=== PATIENT | male | born 1960 | race Caucasian/White ===

== ENCOUNTER 2018-02-06 11:16 | Outpatient (CLI) ==
[2018-02-06 12:25] VITALS: BMI 37.2
== END 2018-02-06 11:17 | disposition left against medical advice (07) ==
LOC: AMBL 11:16
PROVIDERS: ATTEND Emergency Medicine
DX: R06.82 Tachypnea, not elsewhere classified (principal)

== ENCOUNTER 2018-02-06 12:14 | Emergency (ER) ==
[2018-02-06 12:25] VITALS: BP 162/85; TEMP 97.9; BMI 37.2
--- NOTE | 2018-02-06 12:30 | ED.PDOC ---
General ED Provider: Dr. NASEEM MARQUEZ Chief Complaint: Shortness of Air Stated Complaint: Shortness of breath: was diving at [facility] which was uneventful until his final ascent after which he developed shortness of breath. States he became anxious and swam to the area to exit the devine. Emergency treatment offered by [facility] but was refused. He attributed it to acute anxiety . After leaving the devine he noticed continued SOB /dyspnea and decided to come to ER. States during ascent that he was breathing appropriately. Confirmed by his son who is present/ Time Seen by Physician: 12:20 Mode of Arrival: Walk-In Information Source: Patient Exam Limitations: No limitations Nursing and Triage Documentation Reviewed and Agree: Yes Reviewed sepsis parameters & appropriate labs ordered?: Yes System Inflammatory Response Syndrome: Not Applicable Sepsis Protocol: For patient's 13 years and over: Temp is 96.8 and below OR 101 and greater Pulse >90 BPM Resp >20/minute Acutely Altered Mental Status Are patient's symptoms suggestive of a new infection, such as: -Pneumonia -Skin, Soft Tissue -Endocarditis -UTI -Bone, Joint Infection -Implantable Device -Acute Abdominal Infection -Wound Infection -Meningitis -Blood Stream Catheter Infection -Unknown System Inflammatory Response Syndrome: Not Applicable Respiratory Complaint Exam - Shortness of Air Complaint/Exam Onset/Duration: 2-3 hours Symptoms Are: Still present Timing: Constant Initial Severity: Severe Current Severity: Moderate Character: Reports: Dyspnea at rest, Dyspnea on exertion Aggravating: Reports: Movement Alleviating: Reports: Oxygen (IMPROVED AFTER PLACED ON O2 AT 2 L NC) Associated Signs and Symptoms: Reports: Wheezing. Denies: Cough, Chest pain with cough, Chest pain, Fever, Chills, Diaphoresis, Nasal congestion, Dizziness , Calf pain, Edema, Rapid breathing Related History: Denies: Similar episode Pulmonary Embolism Risk Factors: Reports: None (RECREATIONAL DIVING) Pseudomonas Risk Factors: Reports: None Tuberculosis Risk Factors: Reports: None Home Oxygen Use: No Recent Stress Test: Yes (6 MO AGO AND WAS NORMAL) Recent Echo/LV Function: No Respiratory Distress: Mild Stridor Present: No Tracheal Deviation: No Subcutaneous Emphysema: No Accessory Muscle Use: No Retractions: Not Present Diminished Breath Sounds: Yes (POSTERIOR CHEST FIELD) Unable to Speak Full Sentences: No Fatigue: Yes Leg Swelling: No Igor's Sign Present: No Grunting Respirations: No Kussmaul Respirations: No Differential Diagnoses: Pulmonary Edema, Pulmonary Embolism (BAROTRAUMA) Related Surgical History: Reports: None Review of Systems - Review Of Systems Constitutional: Reports: No symptoms. Denies: Diaphoresis, Sweats Eyes: Reports: No symptoms Ears, Nose, Mouth, Throat: Reports: No symptoms Respiratory: Reports: Short of air, Wheezing Cardiac: Reports: No symptoms GI: Reports: No symptoms : Reports: No symptoms Musculoskeletal: Reports: No symptoms Skin: Reports: No symptoms Neurological: Reports: No symptoms Endocrine: Reports: No symptoms Hematologic/Lymphatic: Reports: No symptoms All Other Systems: Reviewed and Negative Past Medical History - Past Medical History Endocrine: Reports: Dyslipidemia Cardiovascular: Reports: Hypertension Respiratory: Reports: None Hematological: Reports: None Gastrointestinal: Reports: None Genitourinary: Reports: None Neuro/Psych: Reports: None Musculoskeletal: Reports: None Cancer: Reports: None - Surgical History General Surgical History: Reports: None - Family History Family History: Reports: None - Social History Smoking Status: Never smoker Hx Substance Use: No Alcohol Screening: Occasionally - Immunizations Tetanus Shot up to Date: No Physical Exam - Physical Exam Appearance: Ill-appearing, No pain distress, Well-nourished, Obese Ill-appearing: Mild Pain Distress: Mild Eyes: KURT, EOMI, Conjunctiva clear ENT: Ears normal, Nose normal, Oropharynx normal Respiratory: Airway patent, Breath sounds clear, Breath sounds diminished, Respirations nonlabored, Crackles (RT POSTERIOR CHEST) Cardiovascular: RRR, Pulses normal, Murmur (GRADE 2/6) GI/: Soft, Nontender, No masses, Bowel sounds normal, No Organomegaly Musculoskeletal: Normal strength, ROM intact, No edema, No calf tenderness Skin: Warm, Dry, Normal color Neurological: Sensation intact, Motor intact, Reflexes intact, Cranial nerves intact, Alert, Oriented Psychiatric: Affect appropriate, Mood appropriate Critical Care Note - Critical Care Note Total Time (mins): 120 Course - Course Hematology/Chemistry: 02/06/18 13:09 02/06/18 13:09 Orders, Labs, Meds: Lab Review 02/06/18 02/06/18 02/06/18 12:20 13:09 13:09 WBC 12.58 H RBC 4.85 Hgb 15.0 Hct 42.6 MCV 87.8 MCH 30.9 MCHC 35.2 RDW Coeff of Soheila 12.7 Plt Count 239 Immature Gran % (Auto) 0.4 Neut % (Auto) 83.6 Lymph % (Auto) 9.8 L Lyman % (Auto) 5.8 Eos % (Auto) 0.2 Baso % (Auto) 0.2 Immature Gran # (Auto) 0.1 Neut # (Auto) 10.5 H Lymph # (Auto) 1.2 Lyman # (Auto) 0.7 Eos # (Auto) 0.0 Baso # (Auto) 0.0 D-Dimer (Manual) Puncture Site R rad O2 Saturation 92.0 L ABG pH 7.438 ABG pCO2 28.2 L ABG pO2 60.0 L ABG HCO3 19.1 L ABG Total CO2 20 L ABG Base Excess -5 L Max Test + FiO2 % 21.0 Sodium 139 Potassium 4.5 Chloride 107 Carbon Dioxide 22 Anion Gap 14.5 BUN 17 Creatinine 0.89 Estimated GFR (MDRD) 87.00 BUN/Creatinine Ratio 19.10 Glucose 93 Lactic Acid Calcium 9.2 Total Bilirubin 0.5 AST 46 H ALT 51 Alkaline Phosphatase 64 Lactate Dehydrogenase LD Total Fraction LD 1 Fraction LD 2 Fraction LD 3 Fraction LD 4 Fraction LD 5 Total Creatine Kinase 553 CK-MB (CK-2) 9.0 H* CK-MB (CK-2) % 1.87698 Troponin I 0.2390 Total Protein 6.9 Albumin 3.7 Globulin 3.2 Albumin/Globulin Ratio 1.16 02/06/18 02/06/18 02/06/18 13:09 14:55 14:55 WBC RBC Hgb Hct MCV MCH MCHC RDW Coeff of Soheila Plt Count Immature Gran % (Auto) Neut % (Auto) Lymph % (Auto) Lyman % (Auto) Eos % (Auto) Baso % (Auto) Immature Gran # (Auto) Neut # (Auto) Lymph # (Auto) Lyman # (Auto) Eos # (Auto) Baso # (Auto) D-Dimer (Manual) 920.24 Puncture Site O2 Saturation ABG pH ABG pCO2 ABG pO2 ABG HCO3 ABG Total CO2 ABG Base Excess Max Test FiO2 % Sodium Potassium Chloride Carbon Dioxide Anion Gap BUN Creatinine Estimated GFR (MDRD) BUN/Creatinine Ratio Glucose Lactic Acid 14.5 Calcium Total Bilirubin AST ALT Alkaline Phosphatase Lactate Dehydrogenase LD Total Fraction LD 1 Fraction LD 2 Fraction LD 3 Fraction LD 4 Fraction LD 5 Total Creatine Kinase CK-MB (CK-2) CK-MB (CK-2) % Troponin I 0.2990 Total Protein Albumin Globulin Albumin/Globulin Ratio 02/06/18 02/06/18 02/06/18 14:55 14:55 14:55 WBC RBC Hgb Hct MCV MCH MCHC RDW Coeff of Soheila Plt Count Immature Gran % (Auto) Neut % (Auto) Lymph % (Auto) Lyman % (Auto) Eos % (Auto) Baso % (Auto) Immature Gran # (Auto) Neut # (Auto) Lymph # (Auto) Lyman # (Auto) Eos # (Auto) Baso # (Auto) D-Dimer (Manual) Puncture Site O2 Saturation ABG pH ABG pCO2 ABG pO2 ABG HCO3 ABG Total CO2 ABG Base Excess Max Test FiO2 % Sodium Potassium Chloride Carbon Dioxide Anion Gap BUN Creatinine Estimated GFR (MDRD) BUN/Creatinine Ratio Glucose Lactic Acid Calcium Total Bilirubin AST ALT Alkaline Phosphatase Lactate Dehydrogenase 223 LD Total 213 Fraction LD 1 18 Fraction LD 2 32 Fraction LD 3 23 Fraction LD 4 13 Fraction LD 5 14 Total Creatine Kinase 485 CK-MB (CK-2) 8.7 H* CK-MB (CK-2) % 1.66043 Troponin I Total Protein Albumin Globulin Albumin/Globulin Ratio Orders Category Date Time Status ABG DRAW REQUEST Stat CARDIO 02/06/18 12:55 Completed EKG-(ED ONLY) Stat CARDIO 02/06/18 12:54 Completed EKG-(ED ONLY) Stat CARDIO 02/06/18 14:43 Completed ABG Stat LAB 02/06/18 12:20 Completed CBC W/ AUTO DIFF Stat LAB 02/06/18 13:09 Completed CMP [COMPREHENSIVE METABOLIC PANEL] Stat LAB 02/06/18 13:09 Completed CPK [CREATINE KINASE] Stat LAB 02/06/18 13:09 Completed CPK [CREATINE KINASE] Stat LAB 02/06/18 14:55 Completed D-DIMER Stat LAB 02/06/18 13:09 Completed LACTIC ACID Stat LAB 02/06/18 14:55 Completed LDH ISOENZYMES Stat LAB 02/06/18 14:55 Completed Lactic Acid Dehydrogenase Stat LAB 02/06/18 14:55 Completed TROPONIN I Stat LAB 02/06/18 13:09 Completed TROPONIN I Stat LAB 02/06/18 14:55 Completed Enoxaparin Sodium [Lovenox] MEDS 02/06/18 15:45 Discontinued 100 mg .ROUTE .STK-MED ONE Enoxaparin Sodium [Lovenox] MEDS 02/06/18 15:43 Discontinued 100 mg SUBCUT ONCE STA CHEST, 1V AP ONLY Stat RADS 02/06/18 12:54 Completed Medications Discontinued Medications Generic Name Dose Route Start Last Admin Trade Name Yamel PRN Reason Stop Dose Admin Enoxaparin Sodium 100 mg 02/06/18 15:43 02/06/18 15:58 Lovenox SUBCUT 02/06/18 15:44 100 mg ONCE STA Administration Vital Signs: Temp Pulse Resp BP Pulse Ox 02/06/18 12:16 97.9 F 69 16 162/85 H 86 L Departure - Departure Time of Disposition: 15:50 Disposition: TSF SHORT-TRM HOSP Discharge Problem: Dyspnea and respiratory abnormalities, Dyspnea on exertion, Activities involving scuba diving, Cardiomegaly, Pulmonary edema, Right pulmonary infiltrate on CXR Discharge Problem: (Ruled Out): Congenital cardiomegaly Condition: Stable Pt referred to PMD for follow-up: No IPMP verified?: No Allergies/Adverse Reactions: Allergies rofecoxib [From Vioxx] Adverse Reaction (Verified 02/06/18 12:32) Transfer Form Completed: Yes Disposition Discussed With: Patient, Family (CONDITON STABLE AT TIME DISCHARGE) Additional Information: Monitoring EMS radio traffic earlier in afternoon, was award of a diver at [facility] that had ascended and developed acute shortness of breath. EMS responded and actualy reqested standby for air evac, Upon arrival patient attributed his sudden dyspnea to a panic attack and refused treatment or transport PATIENTS SON ADVISED ON WAY BACK TO TOWN IN CAR HIS FATHER BECAME MORE DYSPNEIC THEREFORE CAME TO ER. GENTLEMAN ADVISED HE HAD NOT EXPERIECED PREVIOUS SOB DURING THE DIVE AND STATED HE DID NOT SURFACE IN APPROPRIATELY. IT WAS ONLY AFTER HE SURFACED THAT HE DEVELOPED SOB AND HAD TROUBLE SWIMMING TO EXITING SITE. ONCE THERE SEEMED TO RECOVER. IN REVEIWING HIS HX STATE DURING TRAINING WITH VIGOROUS SWIMMING HE WOULD DEVELOP SOB BUT THEN WOULD RECOVER WITHOUT INCIDENT. DENIED KNOWLEDGE OF CARDIOPULMONARY DISEASE Due to concern over diving related cardiopulmonary problem, consulted hyperbaric department at [facility] appropriate facility providing hyperbaric chamber. Explained findings and concern to physician at that facility.RECOMMENDED TRANSFERIING TO ER FOR EVALUATION AND ADMISSON OF THE POSSIBILITY OF CARDIAC DISORDDER. Agreed to accept patiENT. [facility] contacted and responded. AFTER DEPARTURE SON DID STATE THAT HE RECALLED THAT HIS FATHER HAD BEEN EXPERIENCED DYSPNEA OVER PAST WEEK AND THOUGHT IT WAS JUST RELATED TO HIS TRAINING FOR THE DIVING EVENT
--- NOTE | 2018-02-06 13:21 | DI ---
EXAM: Single view of the chest. History: Dyspnea. Comparison: None available. Findings: Heart is mildly enlarged. Bilateral interstitial thickening. Right medial lower lung infi ltrate. No obvious pleural fluid and no pneumothorax. No acute osseous abnormalities. Impression: 1. Mild cardiomegaly with interstitial edema. 2. Right medial lower lung infiltrate could represent superimposed pneumonia or related to the edema .
[2018-02-06] MEDS ORDERED: LOVENOX SUBCUT STA (15:43)
[2018-02-06] MEDS ORDERED: LOVENOX ONE (15:45)
== END 2018-02-06 16:00 | disposition short-term general hospital (02) ==
LOC: ED 12:14
DX: I51.7 Cardiomegaly (principal); J81.1 Chronic pulmonary edema; R91.8 Other nonspecific abnormal finding of lung field; E78.5 Hyperlipidemia, unspecified; I10 Essential (primary) hypertension; R06.02 Shortness of breath; R06.2 Wheezing; Y93.15 Activity, underwater diving and snorkeling
CPT/HCPCS: 36415; 80053; 82550; 82553; 82803; 83605; 83615; 83625; 84484; 85025; 85379; 93005; 93010; 96372; 99285